=== PATIENT | male | born 1945 | race Caucasian/White ===

== ENCOUNTER → 2023-08-05 23:59 | Outpatient (BNV) | payer OTHER, SELFPAY | PROVIDERS: PCP Internal Medicine; Visit Provider Internal Medicine | DX: I48.92 Unspecified atrial flutter (principal); I10 Essential (primary) hypertension; E78.5 Hyperlipidemia, unspecified | CPT/HCPCS: 99223 ==

== ENCOUNTER → 2023-08-31 12:53 | Outpatient (REF) | payer OTHER, SELFPAY ==
--- NOTE | 2023-08-31 13:07 | CA_ITS ---
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 The visually estimated ejection fraction is between 60-65%. - No obvious valvular pathology seen on this study. - There is mild dilatation of the ascending aorta measuring 3.90 cm. Findings Left Ventricle Normal left ventricular cavity size. There is mildly increased left ventricular wall thickness. The left ventricular systolic function is normal. The visually estimated ejection fraction is between 60-65%. There is no evidence of regional wall motion abnormalities. Diastolic function is normal for age. Right Ventricle Normal right ventricular cavity size and systolic function. Atria Both atria are normal in size. Aortic Valve There is a normal trileaflet aortic valve. There is no aortic valve stenosis. There is no aortic valve regurgitation. Mitral Valve The mitral valve appears normal. There is mild mitral valve regurgitation. There is no mitral valve stenosis. Pulmonic Valve The pulmonic valve is likely normal. Tricuspid Valve There is trace tricuspid valve regurgitation. There is no evidence of pulmonary hypertension. Great Vessels The asc aorta is normal in size. There is mild dilatation of the ascending aorta measuring 3.90 cm. Venous The inferior vena cava is normal in size and collapses greater than 50% with inspiration. Pericardium/Pleural There is no evidence of pericardial effusion. Prior Study Comparison No prior study available for comparison. Recommendations, Care & Conclusions No obvious valvular pathology seen on this study. Measurements 2D Linear Measurements IVSd: 1.06 0.6-0.9/0.6-1.0 cm LVIDd: 4.76 3.9-5.3/4.2-5.9 cm LVIDd Index: 2.00 2.4-3.2/2.2-3.1 cm/m2 LVIDs: 2.97 2.0-3.6 cm LVPWd: 1.13 0.7-1.1 cm Ao Root: 3.30 2.1-3.5 cm LA Diam: 3.80 2.7-3.8/3.0-4.0 cm LAIDs Index: 1.60 1.5-2.3 cm/m2 LV Mass: 236.97 67-162/88-224 g LV Mass Index: 99.57 43-95/49-115 g/m2 LVOT Diam: 2.00 3.0+(-)1.3 cm 2D Systolic Function EF 4C: 61.20 >55% EF 2C: 71.90 >55% EF BiP: 67.60 >55% Mitral Valve MV Pk E: 0.72 MV PK A: 0.52 MV Decel Time: 116.00 E/A: 1.40 E'Lateral: 12.80 E'Medial: 5.87 E/E' Med: 12.20 E/E' Lat: 5.60 PHT: 34.00 MVA PHT: 6.47 Decel Saunders: 6.16 LVOT LVOT Diam: 2.00 LVOT Area: 3.14 Diastolic Function MV Pk E: 0.72 MV Pk A: 0.52 E/A: 1.40 E'Medial: 5.87 E/E' Med: 12.20 E' Laterial: 12.80 E/E' Lat: 5.60 Right Ventricle TAPSE (mm): 24.00 Tricuspid Valve TR Pk Gato: 2.33 TR Pk Grad: 22.00 Great Vessels Aorta Ao Root-2D: 3.30 2.0-3.7 cm Ao Asc: 3.90 2.1-3.4 cm Ao Arch: 3.20 Pulmonary Valve PV Pk Gato: 1.55 Peak PV Grad: 10.00 Updated in Other Vendor System with Status of Final Jose Layton MD electronically signed on 09/01/2023 2:55:22 PM with status of Final
--- NOTE | 2023-08-31 13:07 | HM_ITS ---
* Total monitoring time 6 days. * Underlying rhythm is atrial fibrillation. Average ventricular rate 75/Min. Range 39 to 127/Min. * Pauses noted but do not reach significance. * Occasional PVCs with a burden of 0.8%. Very brief runs noted. Longest 6 beats. Cannot exclude aberrant conduction in some areas. * No patient markers or diary events. MTDD
== END ==
LOC: HO.CARD 12:53
PROVIDERS: PCP Internal Medicine; Visit Provider Internal Medicine
DX: I48.91 Unspecified atrial fibrillation (principal)
CPT/HCPCS: 93242; 93306; Q9957

== ENCOUNTER → 2023-08-31 13:07 | Outpatient (BNV) | payer OTHER, SELFPAY | PROVIDERS: PCP Internal Medicine; Visit Provider Internal Medicine | DX: I48.91 Unspecified atrial fibrillation (principal) | CPT/HCPCS: 93244; 93306 ==

== ENCOUNTER 2023-09-13 09:25 | Outpatient (AMB) | payer OTHER, SELFPAY ==
--- NOTE | 2023-09-13 09:43 | A.OFFVIS_ITS ---
Intake Vital Signs 09/13/23 09:44 Height 6 ft Weight 273 lb 5.971 oz BMI 37.1 BP 158/74 H Blood Pressure Location Lt brachial Position Sitting Pulse 79 Intake Visit Reasons: [facility] follow up, echo/holter Intake Note: [facility] follow up Underwriting Director Required: No Accompanied by: Spouse Allergies enalapril Adverse Reaction (Intermediate, Verified 09/13/23 09:45) Kidney levels Medication List - Last Reconciled 09/13/23 by Jose Layton MD allopurinol 300 mg PO DAILY apixaban (Eliquis) 5 mg PO BID glipizide 10 mg PO DAILY lisinopril 10 mg PO DAILY metformin 1,000 mg PO BID pravastatin 40 mg PO BEDTIME HPI HPI Comments History of Present Illness Details Seymour returns for follow-up after recent hospitalization at [facility]. He was seen in consultation there regarding atrial flutter. He essentially came for a partial penectomy surgery and in that setting, he was diagnosed to have atrial flutter with variable block with controlled ventricular rate. Patient himself did not have any symptoms at that time. No known atrial arrhythmias in the past. Since discharge, he states he is feeling fine. He does not have any complaints like angina or shortness of breath or palpitations or in fact anything cardiac sounding symptoms. No known coronary artery disease or myocardial infarction. Duration of the atrial flutter/fibrillation is not clear as there is no preop EKG to compare. [facility] Medical History (Updated 09/13/23 @ 10:49 by Jose Layton MD) Atrial fibrillation/flutter Penile cancer Essential hypertension Atrial fibrillation Family History (Updated 09/13/23 @ 09:48 by Dyana Bangura) Mother No problems noted. Father No problems noted. Social History (Updated 09/13/23 @ 09:48 by Dyana Bangura) Alcohol intake: never Patient Tobacco Use Status: Never used Tobacco Review of Systems Const Denies chills, Denies daytime sleepiness, Denies fatigue, Denies fever(s), Denies frequent falls, Denies night sweats, Denies snoring, Denies weakness, Denies weight gain and Denies weight loss Eyes Denies loss of vision ENT Denies dizziness and Denies hearing loss Card Denies chest pain, Denies chest pain with activity, Denies syncope, Denies rapid heart rate, Denies edema, Denies claudication, Denies leg edema, Denies lightheadedness, Denies palpitations, Denies dyspnea, Denies dyspnea on exertion and Denies orthopnea Resp Denies cough, Denies excessive phlegm production, Denies dyspnea, Denies dyspnea on exertion, Denies snoring and Denies wheezing GI Denies abdominal pain, Denies hematochezia, Denies change in bowel habits, Denies change in stool character, Denies heartburn, Denies nausea and Denies vomiting Denies hematuria, Denies dysuria and Denies urinary frequency Musc Denies arthralgias, Denies muscle weakness, Denies numbness and Denies tingling Skin/Breast Denies nail changes and Denies rash Neuro Denies Abnormal speech present, Denies dizziness, Denies syncope, Denies frequent falls, Denies loss of vision, Denies memory loss, Denies numbness, Denies tingling and Denies weakness Psych Denies depression and Denies memory loss Endo Denies fatigue and Denies palpitations Aller/Immun Denies wheezing Physical Exam Vital Signs: Last Vital Signs Pulse 79 09/13/23 09:44 BP 158/74 H 09/13/23 09:44 BMI result Body Mass Index 37.1 Const General: comfortable and no acute distress Orientation/consciousness: patient oriented x3 HEENT Other: Unremarkable Head: Yes normal to inspection Neck Neck: Yes normal visual inspection Chest Chest palpation & inspection: normal inspection of the chest Resp Auscultation: clear to auscultation bilaterally Cardio Palpation: normal PMI Heart sounds: S1 normal heart sound present, S2 normal heart sound present, no gallops, no murmurs and no rubs GI Palpation (GI): Soft to palpation Back/Spine/Pelvis Other: unremarkable Skin General skin exam: no rashes or lesions noted Neuro General: patient oriented x3 Speech: No Abnormal speech present Extrem General: Yes normal to inspection Psych Mental Status: mental status grossly normal Office Procedures EKG Details: EKG with atrial flutter with variable block at 79/Min. [id number], Complete Assessment & Plan Assessment & Plan (1) Atrial fibrillation/flutter: Code(s): I48.91 - Unspecified atrial fibrillation; I48.92 - Unspecified atrial flutter Plan: In the recent Holter, underlying rhythm is atrial fibrillation/flutter and difficult to differentiate in lot of areas (possibly more flutter than fibrillation). However, well controlled. There are some nighttime pauses but they do not reach significance. We discussed about pathophysiology of the same. Currently, not requiring any rate control meds. Otherwise, continue anticoagulation. We discussed about cardioversion but in the absence of symptoms as well as the fact that he is actually dealing with penile cancer also reasonable to conservatively manage this. We also discussed about sleep study to look for any obstructive sleep apnea but he would hold off on that for now. (2) PVC (premature ventricular contraction): Code(s): I49.3 - Ventricular premature depolarization Plan: Occasional PVCs and Holter. [place] is less than 1%. Very brief run of up to 6 beats noted. Possible aberrant conduction in some areas. LVEF is preserved on the echocardiogram at 60-65%. No wall motion abnormalities. No specific management for now. (3) Essential hypertension: Code(s): I10 - Essential (primary) hypertension Plan: Blood pressure seems to be on the higher side. Home pressures are apparently a bit lower. His potassium is on the higher side 4.7 in the recent [facility] labs.. We can consider going up on lisinopril 20 mg daily and closely monitoring potassium or adding another agent like amlodipine. He would like to discuss this with her own PCP. Hence no changes made today. (4) Penile cancer: Code(s): C60.9 - Malignant neoplasm of penis, unspecified Plan: He states he has awaiting an appointment at [facility] as there is an enlarged lymph node as well. Local surgery has already been completed. Plan Discussed with significant other who came for appointment. Coding Level of Care Code Est Pt Level 4 (40904) Diagnoses Atrial fibrillation/flutter I48.91; I48.92 PVC (premature ventricular contraction) I49.3 Essential hypertension I10 Penile cancer C60.9 CPT Codes EKG - CPT: 29817-[id number], Complete ([id number])
[2023-09-13 09:44] VITALS: BP 158/74; PULSE 79; BMI 37.1
== END 2023-09-13 10:18 | disposition home or self-care (01) ==
PROVIDERS: PCP Internal Medicine; Visit Provider Internal Medicine
DX: I48.91 Unspecified atrial fibrillation (principal); I48.92 Unspecified atrial flutter; I49.3 Ventricular premature depolarization; I10 Essential (primary) hypertension; C60.9 Malignant neoplasm of penis, unspecified
CPT/HCPCS: 93010; 99214

== ENCOUNTER → 2023-09-13 09:25 | Outpatient (BNVA) | payer OTHER, SELFPAY | PROVIDERS: PCP Internal Medicine; Visit Provider Internal Medicine | DX: I48.91 Unspecified atrial fibrillation (principal); I48.92 Unspecified atrial flutter; I49.3 Ventricular premature depolarization; I10 Essential (primary) hypertension; C60.9 Malignant neoplasm of penis, unspecified; Z79.01 Long term (current) use of anticoagulants; Z79.899 Other long term (current) drug therapy | CPT/HCPCS: 93005 ==